=== PATIENT | female | born 1970 | race Caucasian/White ===

== ENCOUNTER → 2017-02-23 | Outpatient (CLI) | payer OTHER ==
[~2017-02-23] MED LIST: IOPAMIDOL (ISOVUE-300) 100 ML BTL ONE
== END ==
LOC: FIMAGING 15:45
PROVIDERS: ATTEND Internal Medicine Infectious Disease
DX: R10.30 Lower abdominal pain, unspecified (principal); R10.2 Pelvic and perineal pain; R11.0 Nausea; R63.4 Abnormal weight loss; R53.83 Other fatigue; Z80.41 Family history of malignant neoplasm of ovary
CPT/HCPCS: Q9967

== ENCOUNTER → 2017-04-24 | Outpatient (CLI) | payer OTHER | LOC: FCPNEURO 21:00 | PROVIDERS: ATTEND Student in an Organized Health Care Education/Training Program | DX: G47.33 Obstructive sleep apnea (adult) (pediatric) (principal) ==

== ENCOUNTER 2018-05-06 11:31 | Observation (INO) | payer OTHER ==
--- NOTE | 2018-05-06 12:42 | EDPHY ---
H & P Stated Complaint: SOB Time Seen by Provider: 05/06/18 12:27 HPI/ROS: CHIEF COMPLAINT: Dyspnea HISTORY OF PRESENT ILLNESS: The patient presents the ED for evaluation of several days of dyspnea. The patient does have a history of atrial fibrillation and is on Bystolic. She is not anticoagulated. She has no history of coronary artery disease. She does take a daily aspirin. The patient denies fever, cough or congestion. She reports increased dyspnea on exertion. The patient does admit to being under some stress secondary to the passing of her father. The patient denies any asymmetric leg swelling. She has had some mild pain in her left calf. REVIEW OF SYSTEMS: A comprehensive 10 point review of systems is otherwise negative aside from elements mentioned in the history of present illness. Source: Patient Exam Limitations: No limitations - Personal History Current Tetanus/Diphtheria Vaccine: Unsure Current Tetanus Diphtheria and Acellular Pertussis (TDAP): Unsure - Medical/Surgical History Hx Asthma: No Hx Chronic Respiratory Disease: No Hx Diabetes: Yes Hx Cardiac Disease: No Hx Renal Disease: No Hx Cirrhosis: No Hx Alcoholism: No Hx HIV/AIDS: No Hx Splenectomy or Spleen Trauma: No Other PMH: afib, DM2, HTN, polycystic ovarian, - Social History Smoking Status: Never smoked - Physical Exam Exam: General Appearance: Obese female, no acute distress Eyes: Pupils equal and round no pallor or injection ENT, Mouth: Mucous membranes moist Respiratory: There are no retractions, lungs are clear to auscultation Cardiovascular: Regular rate and rhythm Gastrointestinal: Abdomen is soft and nontender, no masses, bowel sounds normal Neurological: A&O, normal motor function, normal sensory exam, normal cranial nerves Skin: Warm and dry, no rashes Musculoskeletal: Neck is supple nontender Extremities: Mild left calf tenderness appreciated, no asymmetry noted on exam Psychiatric: Patient is oriented X 3, there is no agitation Constitutional: Initial Vital Signs Temperature (C) 37.3 C 05/06/18 11:40 Heart Rate 70 05/06/18 11:40 Respiratory Rate 16 05/06/18 11:40 Blood Pressure 148/90 H 05/06/18 11:40 O2 Sat (%) 95 05/06/18 11:40 O2 Delivery Mode Room Air Allergies/Adverse Reactions: No Known Allergies Allergy (Unverified 05/06/18 11:39) Home Medications: Medication Instructions [facility]ed [facility] 05/06/18 Lisinopril 05/06/18 Lorazepam 05/06/18 Metformin 1000 mg 05/06/18 Toujeo Solostar 05/06/18 Medical Decision Making - Diagnostics EKG Interpretation: EKG: Complete interpretation has been separately recorded in the [facility] archive. Summary impression: Sinus rhythm, rate 64 Imaging Results: Imaging Impressions Chest/Thorax CTA 05/06/18 14:17 Impression: Acute pulmonary thromboembolic disease within the lower lobes bilaterally and the right middle lobe. Results called to Dr. Weston Muniz at 2:55 PM at the time of the interpretation. ED Course/Re-evaluation: Patient presents to the ED for evaluation of acute dyspnea. The patient is found to have bilateral pulmonary embolism on CT pulmonary angiogram. Clinically the patient has no evidence of right heart failure. She has no evidence of an arrhythmia noted on her EKG. Differential Diagnosis: Differential diagnosis considered includes pulmonary embolism, pneumonia, acute coronary syndrome, pericarditis, myocarditis - Data Points Laboratory Results: Laboratory Results 05/06/18 12:51 05/06/18 12:51 05/06/18 05/06/18 05/06/18 13:38 12:51 12:51 WBC RBC Hgb Hct MCV MCH MCHC RDW Plt Count MPV Neut % (Auto) Lymph % (Auto) Davis % (Auto) Eos % (Auto) Baso % (Auto) Nucleat RBC Rel Count Absolute Neuts (auto) Absolute Lymphs (auto) Absolute Monos (auto) Absolute Eos (auto) Absolute Basos (auto) Absolute Nucleated RBC Immature Gran % Immature Gran # D-Dimer 2.04 ug/mLFEU H ug/mLFEU (0.00-0.50) Sodium 143 mEq/L mEq/L (135-145) Potassium 4.4 mEq/L mEq/L (3.5-5.2) Chloride 112 mEq/L H mEq/L (97-110) Carbon Dioxide 22 mEq/l mEq/l (22-31) Anion Gap 9 mEq/L mEq/L (6-14) BUN 13 mg/dL mg/dL (7-23) Creatinine 0.7 mg/dL mg/dL (0.6-1.0) Estimated GFR > 60 Glucose 102 mg/dL H mg/dL (70-100) Calcium 9.3 mg/dL mg/dL (8.5-10.4) POC Troponin I 0.02 ng/mL ng/mL (0.00-0.08) NT-Pro-B Natriuret Pep 91 pg/mL pg/mL (0-125) 05/06/18 12:51 WBC 8.03 10^3/uL 10^3/uL (3.80-9.50) RBC 4.39 10^6/uL 10^6/uL (4.18-5.33) Hgb 13.4 g/dL g/dL (12.6-16.3) Hct 40.4 % % (38.0-47.0) MCV 92.0 fL fL (81.5-99.8) MCH 30.5 pg pg (27.9-34.1) MCHC 33.2 g/dL g/dL (32.4-36.7) RDW 12.8 % % (11.5-15.2) Plt Count 322 10^3/uL 10^3/uL (150-400) MPV 9.4 fL fL (8.7-11.7) Neut % (Auto) 71.4 % % (39.3-74.2) Lymph % (Auto) 18.4 % % (15.0-45.0) Davis % (Auto) 8.6 % % (4.5-13.0) Eos % (Auto) 0.9 % % (0.6-7.6) Baso % (Auto) 0.5 % % (0.3-1.7) Nucleat RBC Rel Count 0.0 % % (0.0-0.2) Absolute Neuts (auto) 5.73 10^3/uL 10^3/uL (1.70-6.50) Absolute Lymphs (auto) 1.48 10^3/uL 10^3/uL (1.00-3.00) Absolute Monos (auto) 0.69 10^3/uL 10^3/uL (0.30-0.80) Absolute Eos (auto) 0.07 10^3/uL 10^3/uL (0.03-0.40) Absolute Basos (auto) 0.04 10^3/uL 10^3/uL (0.02-0.10) Absolute Nucleated RBC 0.00 10^3/uL 10^3/uL (0-0.01) Immature Gran % 0.2 % % (0.0-1.1) Immature Gran # 0.02 10^3/uL 10^3/uL (0.00-0.10) D-Dimer Sodium Potassium Chloride Carbon Dioxide Anion Gap BUN Creatinine Estimated GFR Glucose Calcium POC Troponin I NT-Pro-B Natriuret Pep Point of Care Test Results: Chemistry 05/06/18 13:38 POC Troponin I 0.02 ng/mL ng/mL (0.00-0.08) Departure - Departure Disposition: [facility] Inpatient Acute Clinical Impression: Pulmonary embolism Condition: Fair Referrals: KARSON SWANN [Primary Care Provider] - As per Instructions
[2018-05-06 13:09] LABS: PLATELET COUNT 322 10^3/uL (150-400)
--- NOTE | 2018-05-06 13:24 | CPEKG ---
Test Reason : OPEN Blood Pressure : / mmHG Vent. Rate : 064 BPM Atrial Rate : 064 BPM P-R Int : 141 ms QRS Dur : 105 ms QT Int : 412 ms P-R-T Axes : 021 021 012 degrees QTc Int : 425 ms Sinus rhythm Confirmed by Tho Neves ([id number]) on 05/06/2018 1:23:53 PM Referred By: Confirmed By:Tho Neves
[2018-05-06] MEDS ORDERED: IOPAMIDOL (ISOVUE 370) 100 ML BTL IV ONE (14:25)
[2018-05-06] MEDS ORDERED: RIVAROXABAN 15 MG TAB PO ONE (15:03)
--- NOTE | 2018-05-06 15:24 | PDGENHP ---
History and Physical History and Physical: Chief complaint: dyspnea on exertion History of present illness: The patient is a 47yo F who presented to the ED for feeling generally unwell and for dyspnea on minimal exertion, such as making her bed and walking up stairs for the last 24 hours. She has noticed recent palpitations which has occurred several times a day. She has felt very cold lately. She has been feeling fatigued for a few days. She has been more anxious/distressed this week because her father suddenly 1 week ago. She denies syncope. 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 ROS: +diarrhea the last few days, but she admits her eating pattern has changed and she has taken Imodium last night which helped. +abdominal pain that is intermittent for over 1 year, which she has brought up with her outpt physicians but no imaging has been done. 10 point review of systems was conducted and is negative except as above. Past medical history: ALTON non on CPAP, HTN, DM Type 2, Dyslipidemia, PAF no on AC, SVT, PCOS, Metabolic syndrome, obesity, anxiety. Past surgical history: hysteroscopy w/ D&C. Medications: Bystolic, lisinopril, aspirin, lorazepam, Toujeo, metformin. See med rec for doses. Allergies: NKA. Social history: Nonsmoker, does not drink alcohol, does not consume recreational drugs. , lives w/ . 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 Family history: No clotting disorders. Father - suddenly last week, unk cause, at 79yo. He had colon cancer at 78yo. Mother - unk cause following her [id number]-[id number]-vcb's at 62yo. PGM - from ovarian cancer at 84yo. HTN - brother, mother, father. PCP - Dr. Quirino Alfaro at [facility]. Cad Designer Drafter - Dr. Yue Lawrence. Physical exam: Vitals: Reviewed General: The patient is an obese female who is A&Ox3 and in no acute distress. HEENT: normocephalic, extraocular movements intact, conjunctivae clear, no lesions on face or pinnae. Nares and oral mucosa pink and moist. Neck: trachea midline, no visible masses, no external lesions. CV: +S1/S2, reg rate and rhythm. No murmurs/rubs/gallops. Resp: unlabored breathing, lungs clear to auscultation w/o rales, rhonchi, or wheezing. Abd: soft and nondistended, bowel sounds present. +tender periumbilical area. Musculoskeletal: Normal muscle tone/bulk. Neuro: cranial nerves II XII grossly intact. Intact gross motor and sensory function. Psych: Anxious mood/appropriate affect. Skin: No rash or ecchymoses or petechiae. : no suprapubic tenderness or CVA tenderness. Heme/lymph: No peripheral edema. Nontender calves/thighs bilaterally. Negative Dominique sign bilaterally. Labs: CBC WNL. D-dimer 2.04. Cl 112. Trop 0.02. Other Data: CTA chest - Acute pulmonary thromboembolic disease within the lower lobes bilaterally and the right middle lobe. EKG - SR, rt 65, Q3T3. Personally interpreted. Impression and plan: Acute bilateral PEs Probable DVT -likely 2/2 being sedentary, but may have alternate etiology Abd pain, intermittent Morbid obesity PCOS ALTON, not on CPAP HTN DM 2 HLD PAF, not on AC SVT Anxiety -Continue Xarelto, which was started in ED. -thrombophilia workup. -Check Echo to eval pulm HTN, right heart strain. -Check abd/pelv CT to eval for intrabdominal malignancy. -Recommended that pt consider outpt standard cancer screenings such as mammo and colo. -Monitor on tele, oximetry. -Check AM labs. -Explained to pt she may need O2 on DC. -Code status - Full. -VTE ppx - Xarelto. -Observation status.
[2018-05-06] MEDS ORDERED: HYDROmorphONE/DILAUDID 2 MG TAB PO PRN (16:15)
[2018-05-06] MEDS ORDERED: ONDANSETRON 4 MG/2 ML VIAL IVP PRN (16:15)
[2018-05-06] MEDS ORDERED: ACETAMINOPHEN 325 MG TAB PO PRN (16:15)
[2018-05-06] MEDS ORDERED: HYDROCODONE/APAP 5/325 TAB PO PRN (16:15)
[2018-05-06] MEDS ORDERED: ONDANSETRON DISINTEGRATING 4 MG TAB PO PRN (16:15)
[2018-05-06] MEDS ORDERED: D50W 25 GM/50 ML SYR IVP PRN (17:22)
[2018-05-06] MEDS ORDERED: IOPAMIDOL (ISOVUE-300) 100 ML BTL ONE (17:25)
[2018-05-06] MEDS: INSULIN GLARGINE HUM REC ANLOG U SQ SCH (21:00)
[2018-05-07 04:38] LABS: PLATELET COUNT 296 10^3/uL (150-400)
[2018-05-07] MEDS ORDERED: ASPIRIN 325 MG TAB PO SCH (09:00)
[2018-05-07] MEDS: LORazepam 1 MG TAB PO SCH (09:42)
[2018-05-07] MEDS: RIVAROXABAN 15 MG TAB PO SCH ×2 (09:42→19:12)
[2018-05-07] MEDS: LISINOPRIL 10 MG TAB PO SCH (09:42)
[2018-05-07] MEDS: NEBIVOLOL HCL 5 MG TAB PO SCH (09:42)
--- NOTE | 2018-05-07 12:01 | ASMTCMCOM ---
CM Note CM Note Notes: Case Management Note Met w/pt per MD order. Pt admitted for treatment of pulmonary embolism. Family and friend present in room. There are no case management d/c needs identified d/t pt age, employment status, family support and independence in ADL's prior to admission. There are no therapy evals ordered at this time. PCP is Dr. Alfaro in [place]. Case Management d/c poc: independent with follow up as directed. Case Management available if needs change. Date Signed: 05/07/2018 12:00 PM Electronically Signed By:Sandi Jamison RN
--- NOTE | 2018-05-07 12:31 | HOSPPROG ---
Hospitalist Progress Note Assessment/Plan: Acute bilateral PEs Probable DVT -likely 2/2 being sedentary, but may have alternate etiology Abd pain, intermittent Morbid obesity PCOS ALTON, not on CPAP HTN DM 2 HLD PAF, not on AC SVT Anxiety -Continue Xarelto, which was started in ED. -thrombophilia workup pending -Check Echo to eval pulm HTN, right heart strain. -Check abd/pelv CT to eval for intrabdominal malignancy. -Recommended that pt consider outpt standard cancer screenings such as mammo and colo. -Monitor on tele, oximetry. -Code status - Full. -VTE ppx - Xarelto. -Dispo pending above w/u Subjective: Patient reports some SOB this morning Objective: Vital Signs Temp Pulse Resp BP Pulse Ox 36.7 C 56 L 16 117/67 96 05/07/18 11:46 05/07/18 11:46 05/07/18 11:46 05/07/18 11:46 05/07/18 11:46 Laboratory Results 05/07/18 04:00 05/07/18 04:00 05/06/18 05/07/18 05/08/18 05:59 05:59 05:59 Intake Total 300 Balance 300 - Physical Exam Constitutional: no apparent distress Eyes: PERRL Ears, Nose, Mouth, Throat: moist mucous membranes Cardiovascular: regular rate and rhythym Respiratory: no respiratory distress Gastrointestinal: soft, non-tender abdomen Skin: warm Neurologic: AAOx3 Psychiatric: interacting appropriately ICD10 Worksheet Patient Problems: Problems Problem Status Onset Pulmonary embolism Acute
[2018-05-07] MEDS ORDERED: IOPAMIDOL (ISOVUE-300) 100 ML BTL ONE (13:12)
--- NOTE | 2018-05-07 13:25 | ECHO ---
[email or web address] [address] [address] Main: [phone] Fax: Transthoracic Echocardiogram Name: TAL ERVIN MR#: [id number] Study Date: 05/07/2018 Study Time: 09:02 AM Date of : 1970 Age: 47 year(s) Height: 167.6 cm (66 in.) Weight: 137.89 kg (304 lb.) BSA: 2.39 m2 Gender: Female Examination: Echo Indication: bilat PE-eval for pulm htn and rt heart strain Image Quality: Technically Difficult Contrast: Requested by: Elsa Tretn BP: 121 mmHg/76 mmHg Heart Rate: Rhythm: Indication: bilat PE-eval for pulm htn and rt heart strain Procedure Staff [employer] Sales Representative: Kim Huggins [facility] Reading Physician: Matthew Quiroz MD Requesting Provider: Conclusions: Normal size left ventricle. Borderline concentric LV hypertrophy. Normal global systolic LV function. EF is 56 %. Unable to rule out wall motion abnormalities due to poor endocardial definition. Normal size right ventricle. Normal RV function. There is an echodensity in the left atrium in 4 chamber views. Suspect artifact. However, can not exclude thrombus. Consider TREVIN to further evaluate.. The mitral valve is normal in appearance. There is no mitral valve regurgitation. Aortic valve is not well visualized. There is no aortic valve regurgitation. No aortic valve stenosis is present. Pulmonary artery pressure is not obtained due to inadequate TR jet. There are no old studies for comparison. Measurements: Chambers Valvular Assessment AV/MV Valvular Assessment TV/PV Normal Normal Normal Name Value Range Name Value Range Name Value Range Ao Courtney (MM): 3.1 cm (2.2 cm-3.7 AV Vmax: 1.52 m/s (1 m/s-1.7 PV Vmax: 0.83 m/s (0.6 m/s-0.9 cm) m/s) m/s) IVSd (2D): 0.8 cm (0.6 cm-1.1 AV maxP mmHg ( - ) PV PGmax: 3 mmHg ( - ) cm) LVOT Vmax: 0.88 m/s (0.7 m/s-1.1 LVDd (2D): 4.5 cm (3.9 cm-5.3 m/s) cm) ROLO (Vmax): 1.8 cm2 ( - ) LVDs (2D): 3.2 cm (2.1 cm-4 MV E Vmax: 1.06 m/s ( - ) cm) MV A Vmax: 0.73 m/s ( - ) LVPWd (2D): 1.1 cm ( - ) MV E/A: 1.45 ( - ) Patient: TAL ERVIN Study Date: 05/07/2018 Page 1 of 2 09:02 AM LVOTd 2.0 cm 2.0 cm mm LVEF (2D): 56 (>=54 %) RVDd(2D): 3.0 cm (1.9 cm-3.8 cmmm) Continued Measurements: Chambers Valvular Assessment AV/MV Name Value Name Value LADs: 4.1 cm MV DecTime: 187 m/s LADs Lon.1 cm MV E' Septal: 0.10 m/s LA Area: 23.7 cm2 MV E/E' Septal: 10.20 LA Volume: 66 ml MV E/E' Lateral: 7.60 LA Volume Index: 27.6 ml/m2 TAPSE: 3.1 cm RA Area: 15.7 cm2 Additional Vessels Name Value Ao Ascendin.7 cm Findings: Left Ventricle: Normal size left ventricle. Borderline concentric LV hypertrophy. Normal global systolic LV function. EF is 56 %. Unable to rule out wall motion abnormalities due to poor endocardial definition. Normal diastolic LV function. Right Ventricle: Normal size right ventricle. Normal RV function. Left Atrium: The left atrium is normal in size. There is an echodensity in the left atrium in 4 chamber views. Suspect artifact. However, can not exclude thrombus. Consider TREVIN to further evaluate.. Right Atrium: The right atrium is normal in size. Mitral Valve: The mitral valve is normal in appearance. There is no mitral valve regurgitation. No mitral stenosis is present. Aortic Valve: Aortic valve is not well visualized. There is no aortic valve regurgitation. No aortic valve stenosis is present. Tricuspid Valve: The tricuspid valve is normal in appearance and function. Trivial tricuspid valve regurgitation. Pulmonary artery pressure is not obtained due to inadequate TR jet. Pulmonic Valve: Pulmonary valve not well visualized. There is no pulmonic regurgitation seen. Aorta: Normal size aortic root measuring 3.1 cm. Normal size ascending aorta measuring 2.7 cm. IVC: The IVC is not visualized. Pericardium: No pericardial effusion. (No Signature Object) Patient: TAL ERVIN Study Date: 05/07/2018 Page 2 of 2 09:02 AM [id number]
[2018-05-07] MEDS: INSULIN GLARGINE HUM REC ANLOG U SQ SCH (21:56)
[2018-05-08] MEDS ORDERED: PROPOFOL/EMULSION 500 MG/50 ML BOTTLE IV ONE (08:11)
[2018-05-08] MEDS ORDERED: LIDOCAINE 2% 100 MG/5 ML SYR ONE (08:11)
[2018-05-08] MEDS ORDERED: ALBUTEROL 3 ML DEYVIAL IH PRN (08:28)
[2018-05-08] MEDS ORDERED: NALOXONE HCL 0.4 MG/ML INJ IVP PRN (08:28)
--- NOTE | 2018-05-08 08:28 | PDANEPAE ---
ANE Past Medical History - Pulmonary History Hx Oxygen in Use at Home: No Hx Sleep Apnea: Yes - Endocrine History Hx Diabetes: Yes - Chronic Pain History Chronic Pain: No ANE Review of Systems Review of Systems: ANE Patient History - Allergies Allergies/Adverse Reactions: No Known Allergies Allergy (Unverified 05/06/18 11:39) - Home Medications Home Medications: Aspirin [Aspirin 325 mg (*)] 325 mg PO DAILY 05/06/18 [Last Taken Unknown] Insulin Glargine,Hum.rec.anlog [Toujuditho Solostar] 10 unit SQ HS 05/06/18 [Last Taken Unknown] LORazepam [Ativan (*)] 1 mg PO DAILY 05/06/18 [Last Taken 05/06/18] Lisinopril [Zestril 10 mg (*)] 10 mg PO DAILY 05/06/18 [Last Taken 05/06/18] Metformin HCl [Metformin 1000 mg] 1,000 mg PO BIDMEAL 05/06/18 [Last Taken 05/06 10:00] Nebivolol HCl [Bystolic] 10 mg PO DAILY 05/06/18 [Last Taken 05/06/18] - Smoking Hx Smoking Status: Never smoked ANE Labs/Vital Signs - Labs Result Diagrams: 05/07/18 04:00 05/07/18 04:00 - Vital Signs Blood Pressure: 127/75 Heart Rate: 63 Respiratory Rate: 15 O2 Sat (%): 95 Height: 167.64 cm Weight: 138.3 kg ANE Physical Exam - Airway Neck exam: decreased ROM Mallampati Score: Class 3 Mouth exam: normal dental/mouth exam - Pulmonary Pulmonary: reduced air movement - Cardiovascular Cardiovascular: regular rate and rhythym - ASA Status ASA Status: III ANE Anesthesia Plan Total IV Anesthesia: Yes
--- NOTE | 2018-05-08 08:43 | PDHPUP ---
History & Physical Update H&P update statement: This history and physical update is based on an assessment of the patient which was completed after admission or registration (within 24 hours), but prior to the surgery/procedure. H&P update: H&P reviewed & patient examined, no change in patient's condition since H&P completed
--- NOTE | 2018-05-08 09:13 | POSTANESTH ---
Post Anesthetic Evaluation Cardiovascular Status: Similar to Pre-Op Cond Respiratory Status: Similar to Pre-op Cond. Level of Consciousness/Mental Status: Mildly Sleepy, Arousable Pain Control: Adequate, Prn Tx Ordered Nausea/Vomiting Control: Adequate, Prn Tx Ordered Complications Possibly Related to Anesthesia: None Noted
[2018-05-08] MEDS: LISINOPRIL 10 MG TAB PO SCH (09:45)
[2018-05-08] MEDS: NEBIVOLOL HCL 5 MG TAB PO SCH (09:46)
[2018-05-08] MEDS: LORazepam 1 MG TAB PO SCH (09:46)
[2018-05-08] MEDS: RIVAROXABAN 15 MG TAB PO SCH (09:47)
[2018-05-08 11:07] VITALS: BP 122/72
--- NOTE | 2018-05-08 11:35 | PDMN ---
Medical Necessity Medical necessity: Change to inpt as of 05/08/18. Pt meets inpt criteria per MD order and [facility] [place] M-290, Pulmonary Embolism. 47 y/o admitted w/acute bilateral PE's and probable DVT, abnormal ECHO, will have TREVIN today. PMH includes morbid obesity, DM type 2, anxiety, SVT, PCOS, and metabolic syndrome. Upgraded to inpt for persistent dyspnea and need for further eval/management of above.
--- NOTE | 2018-05-08 12:53 | ASDISCHSUM ---
Discharge Information Plan Status:Home with No Needs Medically Cleared to Leave:05/07/2018 Discharge Date:05/07/2018 CM D/C Disposition:Home, Routine, Self-Care ADT D/C Disposition: Projected Discharge Date:05/07/2018 Transportation at D/C:Self Discharge Delay Reason: Follow-Up Date:05/07/2018 Discharge Slot: Final Diagnosis: Placement Information Patient Contact Information Contact Name:MUKESH Relationship:Sabrina Address:[address] [place] [address] City:[place] Alternate Phone: State/Zip Code:[place] [address] Email: Financial Information Financial Class:Netadmin [facility] Primary Plan Number:[id number] Secondary Plan Desc: Secondary Plan Number: Assessment Information LACE LACE Length of stay for Answers: Less than 1 day current admission Acuity / Level of Answers: Yes Care: Did the patient have an inpatient admission? Comorbidities - select Answers: Diabetes (uncontrolled or all that apply controlled) Other Notes: ALTON on CPAP, HTN, dyslipidemia , S VT, COS, metabolic syndrome # of Emergency department Answers: 1-2 visits in the last 6 months Social determinants Answers: Mental health diagnosis (anxiety, depression, pers onality disorders, etc.) Score: 9 Date Signed: 05/08/2018 12:52 PM Electronically Signed By:Sandi Jamison RN [facility] CM Progress Note CM Note CM Note Notes: Case Management Note Met w/pt per MD order. Pt admitted for treatment of pulmonary embolism. Family and friend present in room. There are no case management d/c needs identified d/t pt age, employment status, family support and independence in ADL's prior to admission. There are no therapy evals ordered at this time. PCP is Dr. Alfaro in [place]. Case Management d/c poc: independent with follow up as directed. Case Management available if needs change. Date Signed: 05/07/2018 12:00 PM Electronically Signed By:Sandi Jamison RN Case Management Discharge Plan Note Case Management Discharge Discharge Order Complete? Answers: Yes Patient to Obtain Answers: via Family Medications Transportation Arranged Answers: Family/Friends Discharge Comments Notes: 05/08/2018 Case Management Note Pt to discharge independent with follow up as directed. Date Signed: 05/08/2018 12:53 PM Electronically Signed By:Sandi Jamison RN Intervention Information
--- NOTE | 2018-05-08 14:19 | PDDCSUM ---
Discharge Summary Discharge Summary: Date of Admission: Date fo Discharge: Consults: Cardiology Procedures: TTE, TREVIN Followup: PCP Hospital Course Problem List: Acute bilateral PEs Abd pain, intermittent Morbid obesity PCOS ALTON, not on CPAP HTN DM 2 HLD PAF, not on AC SVT Anxiety -Continue Xarelto 15 mg BID for first 21 days then 20 mg qd -thrombophilia workup pending, f/u with PCP for results and possible referral to Hematology if w/u is positive -TTE during admission showed echodensity in L atrium, artifact was suspected but unable to exclude thrombus -TREVIN was then performed to further evaluate TTE which did not show any evidence of L atrial thrombus -Abd/pelv CT performed to r/o intrabdominal malignancy, negative -Recommended that pt consider outpt standard cancer screenings such as mammo and colo. Time spent on discharge was >35 minutes with >50% of time spent on patient education and counseling.
--- NOTE | 2018-05-08 16:25 | ECHO ---
[email or web address] [address] [address] Main: [phone] Fax: Transesophageal Echocardiography Name: TAL ERVIN MR#: [id number] Study Date: 05/08/2018 Study Time: 08:57 AM Date of : 1970 Age: 47 year(s) Height: ( ) Weight: ( ) BSA: Gender: Female Examination: TREVIN Indication: Rule out thrombus Image Quality: Adequate Contrast: Requested by: Elsa Trent Heart Rate: Rhythm: BP: / Procedure Staff Sole Cementer: Alicia Vazquez [facility] Reading Physician: Mustapha Anderson MD Requesting Provider: TREVIN Exam Details Conclusions: Normal size left ventricle. Normal global systolic LV function. No regional wall motion abnormality. Normal size right ventricle. The left atrium is normal in size. The left atrial appendage is unilobular. No thrombus in left appendage. The right atrium is normal in size. Trivial mitral valve regurgitation. Mild tricuspid regurgitation is present. There are no significant valvular abnormalities.Normal appearing valves. Measurements: Chambers Valvular Assessment AV/MV Valvular Assessment TV/PV Normal Normal Normal Name Value Range Name Value Range Name Value Range Additional Measurements: Findings: Left Ventricle: Normal size left ventricle. Normal global systolic LV function. No regional wall motion abnormality. Right Ventricle: Patient: TAL ERVIN Study Date: 05/08/2018 Page 1 of 2 08:57 AM Normal size right ventricle. Normal RV function. Left Atrium: The left atrium is normal in size. Left Atrial Appendage: The left atrial appendage is unilobular. No thrombus in left appendage. Right Atrium: The right atrium is normal in size. Mitral Valve: The mitral valve is normal in appearance and function. Trivial mitral valve regurgitation. No mitral stenosis is present. Aortic Valve: The aortic valve is tri-leaflet. There is no significant aortic valve regurgitation. No aortic valve stenosis is present. Tricuspid Valve: The tricuspid valve is normal in appearance and function. Mild tricuspid regurgitation is present. Pulmonic Valve: The pulmonic valve is normal in appearance and function. Pericardium: No pericardial effusion. l1n (No Signature Object) Patient: TAL ERVIN Study Date: 05/08/2018 Page 2 of 2 08:57 AM [id number]
== END 2018-05-08 14:55 | disposition home or self-care (01) ==
LOC: F2W 15:45 → INTOOBSV 05-08 10:20 → OBSVTOIN 05-08 10:20
PROVIDERS: ADMIT Internal Medicine; ATTEND Internal Medicine
PROC: B245ZZ4 Ultrasonography of Left Heart, Transesophageal (ICD-10-PCS; principal; 2018-05-06)
DX: I26.99 Other pulmonary embolism without acute cor pulmonale (principal); E66.01 Morbid (severe) obesity due to excess calories; D68.9 Coagulation defect, unspecified; R10.9 Unspecified abdominal pain; G47.33 Obstructive sleep apnea (adult) (pediatric); I10 Essential (primary) hypertension; E11.9 Type 2 diabetes mellitus without complications; E78.5 Hyperlipidemia, unspecified; I48.0 Paroxysmal atrial fibrillation; F41.9 Anxiety disorder, unspecified; E28.2 Polycystic ovarian syndrome; Z79.82 Long term (current) use of aspirin; Z68.42 Body mass index [BMI] 45.0-49.9, adult
CPT/HCPCS: 71275; 74177; 93005; 93306; 93312; 99285; G0378; 81479-90; 83891-91; 83896-91; 84484-ER; 85300-90; 85670-90; 86147-90; J2001; J2704; Q9967

== ENCOUNTER 2018-05-20 17:44 | Emergency (ER) | payer OTHER ==
--- NOTE | 2018-05-20 18:42 | EDPHY ---
H & P Time Seen by Provider: 05/20/18 18:10 HPI/ROS: CHIEF COMPLAINT: The bilateral chest pain. HISTORY OF PRESENT ILLNESS: The patient is a 47-year-old female who was diagnosed with bilateral pulmonary embolus on 05/06/2018. She is currently taking Xarelto. She has not missed any doses. She presents today because this afternoon she developed bilateral chest pain under her breast. Extends down to her bilateral lower chest wall. The triage note states that she has flank pain but she denies flank pain to me. She has had no shortness of breath. No cough or fever. No abdominal pain. No nausea or vomiting. REVIEW OF SYSTEMS: 10 systems were reveiwed and are negative with the exception of the elements mentioned in the history of present illness. Past Medical/Surgical History: Includes pulmonary embolus, obstructive sleep apnea, hypertension, diabetes type 2, dyslipidemia, SVT, PCOS, metabolic syndrome, obesity, anxiety Smoking Status: Never smoked Physical Exam: 36.6, 132/86, 61, 18, 100% on room air GENERAL: Mildly anxious., in no acute distress, alert. HEENT: Eyes normal to inspection, normal pharynx, no signs of dehydration. NECK: Normal, supple. RESPIRATORY: Clear to auscultation bilaterally, no rales, rhonchi or wheezing. Normal CVS: Regular rate and rhythm, no rubs, murmurs, or gallops. ABDOMEN: Soft, nontender, nondistended, no organomegaly. Normal BACK: Normal to inspection, no CVA tenderness. SKIN: Normal color, no rash, warm, dry. No pallor. EXTREMITIES: No pedal edema, no calf tenderness, no Homans sign or cords, no joint swelling. NEURO/PSYCH: Alert and oriented, mildly anxious, normal motor sensory exam. No obvious cranial nerve deficit. Constitutional: Initial Vital Signs Temperature (C) 36.6 C 05/20/18 17:48 Heart Rate 61 05/20/18 17:48 Respiratory Rate 18 05/20/18 17:48 Blood Pressure 132/86 H 05/20/18 17:48 O2 Sat (%) 100 05/20/18 17:48 O2 Delivery Mode Room Air Allergies/Adverse Reactions: No Known Allergies Allergy (Unverified 05/06/18 11:39) Home Medications: Medication Instructions Recorded Aspirin [Aspirin 325 mg (*)] 325 mg PO DAILY 05/06/18 Insulin Glargine,Hum.rec.anlog 10 unit SQ HS 05/06/18 [Maxx Landry] LORazepam [Ativan (*)] 1 mg PO DAILY 05/06/18 Lisinopril [Zestril 10 mg (*)] 10 mg PO DAILY 05/06/18 Metformin HCl [Metformin 1000 mg] 1,000 mg PO BIDMEAL 05/06/18 Nebivolol HCl [Bystolic] 10 mg PO DAILY 05/06/18 Rivaroxaban [Xarelto 15mg (*)] 15 mg PO BIDMEAL #60 tab 05/08/18 Medical Decision Making - Diagnostics Imaging Results: Imaging Impressions Chest/Thorax CTA 05/20/18 18:50 Impression: Near complete interval resolution of bilateral pulmonary thromboemboli. Minimal residual thrombus in right lower lobe branches. Results called to Dr. Laure Montoya at 8:30 PM at the time of the interpretation. ED Course/Re-evaluation: The in the emergency department I discussed possible etiologies with the patient. I answered all her questions. I discussed that she could develop pain from her current he has. I also discussed the low likelihood of failure on Xarelto. After an extended discussion and answered all her questions patient would like a repeat CT angiogram. I discussed the risks and benefits of this. She was competent and had capacity to make this decision. EKG shows normal sinus rhythm, normal rate, normal axis, normal intervals. There are no ST or T-wave abnormalities. EKG is normal as interpreted by me. The white count is mildly elevated at 9.9. Chemistry panel is unremarkable. Urine is negative. CT angio chest: Please refer the dictated report by Dr. Becerril. The patient has decreased clot load. The patient appears to be improving. I discussed the results with the patient. I answered all her questions. She was given warnings prior to leaving. She will return with worsening symptoms. Differential Diagnosis: My differential includes but is not limited to pleurisy, pulmonary embolus, ACS , acute MA, dissection, aneurysm, pericarditis, myocarditis. The patient has no flank pain or CVA tenderness on my exam. I doubt kidney stone. - Data Points Laboratory Results: Laboratory Results 05/20/18 18:48 05/20/18 18:48 05/20/18 05/20/18 05/20/18 18:54 18:53 18:48 WBC RBC Hgb POC Hgb 13.9 gm/dL gm/dL (12.6-16.3) Hct POC Hct 41 % % (38-47) MCV MCH MCHC RDW Plt Count MPV Neut % (Auto) Lymph % (Auto) [place] % (Auto) Eos % (Auto) Baso % (Auto) Nucleat RBC Rel Count Absolute Neuts (auto) Absolute Lymphs (auto) Absolute Monos (auto) Absolute Eos (auto) Absolute Basos (auto) Absolute Nucleated RBC Immature Gran % Immature Gran # POC Sodium 142 mEq/L mEq/L (135-145) Sodium 137 mEq/L mEq/L (135-145) POC Potassium 4.2 mEq/L mEq/L (3.3-5.0) Potassium 4.5 mEq/L mEq/L (3.5-5.2) POC Chloride 105 mEq/L mEq/L (97-110) Chloride 107 mEq/L mEq/L (97-110) Carbon Dioxide 24 mEq/l mEq/l (22-31) Anion Gap 6 mEq/L mEq/L (6-14) POC BUN 13 mg/dL mg/dL (7-23) BUN 15 mg/dL mg/dL (7-23) Creatinine 0.6 mg/dL mg/dL (0.6-1.0) POC Creatinine 0.6 mg/dL mg/dL (0.6-1.0) Estimated GFR > 60 Glucose 119 mg/dL H mg/dL (70-100) POC Glucose 121 mg/dL H mg/dL (70-100) Calcium 9.4 mg/dL mg/dL (8.5-10.4) POC Troponin I 0.01 ng/mL ng/mL (0.00-0.08) Beta HCG, Qual Urine Color Urine Appearance Urine pH Ur Specific [place] Urine Protein Urine Ketones Urine Blood Urine Nitrate Urine Bilirubin Urine Urobilinogen Ur Leukocyte Esterase Urine Glucose 05/20/18 05/20/18 05/20/18 18:48 18:18 18:10 WBC 9.90 10^3/uL H 10^3/uL (3.80-9.50) RBC 4.37 10^6/uL 10^6/uL (4.18-5.33) Hgb 13.0 g/dL g/dL (12.6-16.3) POC Hgb Hct 40.2 % % (38.0-47.0) POC Hct MCV 92.0 fL fL (81.5-99.8) MCH 29.7 pg pg (27.9-34.1) MCHC 32.3 g/dL L g/dL (32.4-36.7) RDW 12.7 % % (11.5-15.2) Plt Count 360 10^3/uL 10^3/uL (150-400) MPV 9.7 fL fL (8.7-11.7) Neut % (Auto) 62.3 % % (39.3-74.2) Lymph % (Auto) 28.5 % % (15.0-45.0) [place] % (Auto) 7.1 % % (4.5-13.0) Eos % (Auto) 1.1 % % (0.6-7.6) Baso % (Auto) 0.7 % % (0.3-1.7) Nucleat RBC Rel Count 0.0 % % (0.0-0.2) Absolute Neuts (auto) 6.17 10^3/uL 10^3/uL (1.70-6.50) Absolute Lymphs (auto) 2.82 10^3/uL 10^3/uL (1.00-3.00) Absolute Monos (auto) 0.70 10^3/uL 10^3/uL (0.30-0.80) Absolute Eos (auto) 0.11 10^3/uL 10^3/uL (0.03-0.40) Absolute Basos (auto) 0.07 10^3/uL 10^3/uL (0.02-0.10) Absolute Nucleated RBC 0.00 10^3/uL 10^3/uL (0-0.01) Immature Gran % 0.3 % % (0.0-1.1) Immature Gran # 0.03 10^3/uL 10^3/uL (0.00-0.10) POC Sodium Sodium POC Potassium Potassium POC Chloride Chloride Carbon Dioxide Anion Gap POC BUN BUN Creatinine POC Creatinine Estimated GFR Glucose POC Glucose Calcium POC Troponin I Beta HCG, Qual NEGATIVE Urine Color YELLOW Urine Appearance CLEAR Urine pH 5.0 (5.0-7.5) Ur Specific [place] 1.026 (1.002-1.030) Urine Protein NEGATIVE (NEGATIVE) Urine Ketones TRACE H (NEGATIVE) Urine Blood NEGATIVE (NEGATIVE) Urine Nitrate NEGATIVE (NEGATIVE) Urine Bilirubin NEGATIVE (NEGATIVE) Urine Urobilinogen NEGATIVE EU EU (0.2-1.0) Ur Leukocyte Esterase NEGATIVE (NEGATIVE) Urine Glucose NEGATIVE (NEGATIVE) Medications Given: Discontinued Medications Ketorolac Tromethamine (Toradol) 15 mg IVP EDNOW ONE Stop: 05/20/18 19:01 Last Admin: 05/20/18 19:22 Dose: 15 mg Point of Care Test Results: Chemistry 05/20/18 05/20/18 18:54 18:53 POC Sodium 142 mEq/L mEq/L (135-145) POC Potassium 4.2 mEq/L mEq/L (3.3-5.0) POC Chloride 105 mEq/L mEq/L (97-110) POC BUN 13 mg/dL mg/dL (7-23) POC Creatinine 0.6 mg/dL mg/dL (0.6-1.0) POC Glucose 121 mg/dL H mg/dL (70-100) POC Troponin I 0.01 ng/mL ng/mL (0.00-0.08) ISTAT H&H 05/20/18 18:54 POC Hgb 13.9 gm/dL gm/dL (12.6-16.3) POC Hct 41 % % (38-47) Departure - Departure Disposition: Home, Routine, Self-Care Clinical Impression: Pleurisy Chest pain Qualifiers: Chest pain type: unspecified Qualified Code(s): R07.9 - Chest pain, unspecified Condition: Good Instructions: Chest Pain (ED), Pleurisy (ED) Additional Instructions: Your CT angiogram showed improving findings. Follow up with your primary care physician. Return with worsening symptoms. Referrals: KARSON SWANN [Primary Care Provider] - 3-4 days, if not improved
[2018-05-20] MEDS ORDERED: KETOROLAC 15 MG/1 ML SDV ONE (18:47)
[2018-05-20] MEDS ORDERED: KETOROLAC 15 MG/1 ML SDV IVP ONE (19:00)
[2018-05-20 19:02] LABS: PLATELET COUNT 360 10^3/uL (150-400)
[2018-05-20] MEDS ORDERED: IOPAMIDOL (ISOVUE 370) 100 ML BTL IV ONE (19:04)
[2018-05-20 21:58] VITALS: BP 131/69
--- NOTE | 2018-05-22 14:33 | CPEKG ---
Test Reason : OPEN Blood Pressure : / mmHG Vent. Rate : 058 BPM Atrial Rate : 058 BPM P-R Int : 138 ms QRS Dur : 105 ms QT Int : 442 ms P-R-T Axes : 013 013 004 degrees QTc Int : 435 ms Sinus rhythm Confirmed by Laure Montoya ([id number]) on 05/22/2018 2:33:37 PM Referred By: Confirmed By:Laure Montoya
== END 2018-05-20 21:58 | disposition home or self-care (01) ==
DX: R09.1 Pleurisy (principal); I26.99 Other pulmonary embolism without acute cor pulmonale; Z79.01 Long term (current) use of anticoagulants
CPT/HCPCS: 82435-PO; 82565-PO; 82947-PO; 84132-PO; 84295-PO; 84484-ER; 84520-PO; 85014-ER; 96374; J1885; Q9967

== ENCOUNTER 2018-06-15 02:10 | Observation (INO) | payer OTHER ==
[2018-06-15] MEDS ORDERED: HYDROmorphONE/DILAUDID 2 MG/ML INJ IVP ONE (02:35)
[2018-06-15] MEDS ORDERED: NS 1,000 ML IV ONE (02:35)
[2018-06-15] MEDS ORDERED: FAMOTIDINE 20 MG/NACL 50 ML IV ONE (02:35)
[2018-06-15] MEDS ORDERED: HYDROmorphONE/DILAUDID 1 MG/ML INJ ONE (02:38)
--- NOTE | 2018-06-15 02:40 | EDPHY ---
H & P Stated Complaint: abd pain Time Seen by Provider: 06/15/18 02:21 HPI/ROS: HPI The patient presents with epigastric abdominal pain which has been present for the last approximately 2 weeks intermittently. The pain normally occurs about 30-40 minutes after eating a meal. It them subsides. She saw her primary care doctor yesterday and was given a prescription for omeprazole. Basic labs were drawn on the patient was noted to have elevated transaminases. Tonight, she went home and ate a slice of pizza at 7:30 p.m.. She had pain 30 min afterwards though is able to go to sleep. She awoke at about midnight with severe epigastric pain which she describes as aching which radiates toward her back and is moderate in severity. It is not associated with any nausea or vomiting. She has no prior history of abdominal operations. The patient was diagnosed with bilateral pulmonary embolism on May 06 of last year and was started on Xarelto though was transitioned to warfarin. She is taking this medication currently. She denies any dark or bloody stools. She has not had any fevers.. REVIEW OF SYSTEMS 10 systems were reviewed and negative with the exception of the elements mentioned in the history of present illness. PMHx: Recent diagnosis of bilateral pulmonary emboli, now on warfarin, PCOS, obesity, hypertension, atrial fibrillation, type 2 diabetes Soc Hx: Housed with her PHYSICAL General Appearance: Alert, no distress Eyes: Pupils equal and round no pallor or injection ENT, Mouth: Mucous membranes moist Respiratory: There are no retractions, lungs are clear to auscultation Cardiovascular: Regular rate and rhythm Gastrointestinal: Abdomen is soft and tender in the epigastrium and right upper quadrants, no masses, bowel sounds normal Neurological: A&O, moves all extremities Skin: Warm and dry, no rashes Musculoskeletal: Neck is supple non tender Extremities: symmetrical, full range of motion Psychiatric: Patient is oriented X 3, there is no agitation Source: Patient Exam Limitations: No limitations - Personal History LMP (Females 10-55): 1-7 Days Ago Current Tetanus Diphtheria and Acellular Pertussis (TDAP): Unsure - Medical/Surgical History Hx Asthma: No Hx Chronic Respiratory Disease: No Hx Diabetes: Yes Hx Cardiac Disease: Yes Hx Renal Disease: No Hx Cirrhosis: No Hx Alcoholism: No Hx HIV/AIDS: No Hx Splenectomy or Spleen Trauma: No Other PMH: afib, DM2, HTN, polycystic ovarian, PE apr 2018 - Social History Smoking Status: Never smoked Constitutional: Initial Vital Signs Temperature (C) 36.8 C 06/15/18 02:14 Heart Rate 60 06/15/18 02:14 Respiratory Rate 20 06/15/18 02:14 Blood Pressure 144/84 H 06/15/18 02:14 O2 Sat (%) 98 06/15/18 02:14 O2 Delivery Mode Room Air Allergies/Adverse Reactions: No Known Allergies Allergy (Unverified 06/15/18 02:14) Home Medications: Medication Instructions Recorded Aspirin [Aspirin 325 mg (*)] 325 mg PO DAILY 05/06/18 Insulin Glargine,Hum.rec.anlog 10 unit SQ HS 05/06/18 [Toujeo Solostar] LORazepam [Ativan (*)] 1 mg PO DAILY 05/06/18 Lisinopril [Zestril 10 mg (*)] 10 mg PO DAILY 05/06/18 Metformin HCl [Metformin 1000 mg] 1,000 mg PO BIDMEAL 05/06/18 Nebivolol HCl [Bystolic] 10 mg PO DAILY 05/06/18 Rivaroxaban [Xarelto 15mg (*)] 15 mg PO BIDMEAL #60 tab 05/08/18 Medical Decision Making - Diagnostics Imaging Results: Ultrasound right upper quadrant demonstrates cholelithiasis with gallbladder wall thickening suggesting acute cholecystitis, common bile duct measures 8.8 mm , this was interpreted by direct Radiology. Imaging: Discussed imaging studies w/ freight caller Radiologist, I viewed and interpreted images myself Differential Diagnosis: 47-year-old female with multiple medical problems including recent bilateral pulmonary embolism on warfarin, type 2 diabetes, hypertension, obesity, PCOS, atrial fibrillation who presents from home with several weeks of epigastric pain which is postprandial, now with severe pain since midnight tonight. Labs checked yesterday by primary care demonstrate transaminitis with elevated CRP. Differential diagnosis includes cholecystitis, choledocholithiasis, symptomatic cholelithiasis, gastritis. In the emergency department, patient was given IV fluids and medication for her symptoms. Labs were checked and demonstrated progressive transaminitis without leukocytosis. Right upper quadrant ultrasound was performed which demonstrated cholecystitis. Because of this I consulted with Dr. Hughes, the on-call general surgeon. He will evaluate the patient. I have ordered antibiotics. She will be admitted to the hospital. I have discussed the diagnosis and treatment with the patient. She is somewhat concerned because of all of her recent health issues and her underlying obesity and diabetes. - Data Points Laboratory Results: Laboratory Results 06/15/18 02:50 06/15/18 02:50 06/15/18 06/15/18 06/15/18 02:50 02:50 02:50 WBC 8.14 10^3/uL 10^3/uL (3.80-9.50) RBC 4.03 10^6/uL L 10^6/uL (4.18-5.33) Hgb 11.7 g/dL L g/dL (12.6-16.3) Hct 35.9 % L % (38.0-47.0) MCV 89.1 fL fL (81.5-99.8) MCH 29.0 pg pg (27.9-34.1) MCHC 32.6 g/dL g/dL (32.4-36.7) RDW 13.3 % % (11.5-15.2) Plt Count 400 10^3/uL 10^3/uL (150-400) MPV 9.7 fL fL (8.7-11.7) Neut % (Auto) 67.6 % % (39.3-74.2) Lymph % (Auto) 21.1 % % (15.0-45.0) [place] % (Auto) 9.0 % % (4.5-13.0) Eos % (Auto) 1.4 % % (0.6-7.6) Baso % (Auto) 0.7 % % (0.3-1.7) Nucleat RBC Rel Count 0.0 % % (0.0-0.2) Absolute Neuts (auto) 5.50 10^3/uL 10^3/uL (1.70-6.50) Absolute Lymphs (auto) 1.72 10^3/uL 10^3/uL (1.00-3.00) Absolute Monos (auto) 0.73 10^3/uL 10^3/uL (0.30-0.80) Absolute Eos (auto) 0.11 10^3/uL 10^3/uL (0.03-0.40) Absolute Basos (auto) 0.06 10^3/uL 10^3/uL (0.02-0.10) Absolute Nucleated RBC 0.00 10^3/uL 10^3/uL (0-0.01) Immature Gran % 0.2 % % (0.0-1.1) Immature Gran # 0.02 10^3/uL 10^3/uL (0.00-0.10) PT 31.8 SEC H SEC (12.0-15.0) INR 3.10 H (0.83-1.16) APTT 39.9 SEC H SEC (23.0-38.0) Sodium 141 mEq/L mEq/L (135-145) Potassium 3.8 mEq/L mEq/L (3.5-5.2) Chloride 111 mEq/L H mEq/L (97-110) Carbon Dioxide 23 mEq/l mEq/l (22-31) Anion Gap 7 mEq/L mEq/L (6-14) BUN 14 mg/dL mg/dL (7-23) Creatinine 0.6 mg/dL mg/dL (0.6-1.0) Estimated GFR > 60 Glucose 204 mg/dL H mg/dL (70-100) Calcium 8.7 mg/dL mg/dL (8.5-10.4) Total Bilirubin 1.3 mg/dL mg/dL (0.1-1.4) Conjugated Bilirubin 1.1 mg/dL H mg/dL (0.0-0.5) Unconjugated Bilirubin 0.2 mg/dL mg/dL (0.0-1.1) AST 691 IU/L H IU/L (14-46) ALT 1042 IU/L H IU/L (9-52) Alkaline Phosphatase 314 IU/L H IU/L (38-126) Total Protein 6.4 g/dL g/dL (6.3-8.2) Albumin 3.5 g/dL g/dL (3.5-5.0) Lipase 229 IU/L IU/L (23-300) Medications Given: Sodium Chloride (Ns) 1,000 mls @ 200 mls/hr IV CONT ADRIAN Stop: 12/12/18 04:29 Last Admin: 06/15/18 04:29 Dose: 1,000 mls Discontinued Medications Hydromorphone HCl (Dilaudid) 0.5 mg IVP EDNOW ONE Stop: 06/15/18 02:36 Last Admin: 06/15/18 02:45 Dose: 0.5 mg Sodium Chloride (Ns) 1,000 mls @ 0 mls/hr IV EDNOW ONE; Wide Open PRN Reason: Protocol Stop: 06/15/18 02:36 Last Admin: 06/15/18 02:44 Dose: 1,000 mls Famotidine/Sodium Chloride (Pepcid 20 Mg (Premix)) 50 mls @ 200 mls/hr IV EDNOW ONE Stop: 06/15/18 02:49 Last Admin: 06/15/18 02:44 Dose: 50 mls Ceftriaxone Sodium/Dextrose (Rocephin 1 Gm (Premix)) 50 mls @ 100 mls/hr IV EDNOW ONE PRN Reason: Protocol Stop: 06/15/18 04:45 Last Admin: 06/15/18 04:27 Dose: 50 mls Departure - Departure Disposition: [facility] In[facility] Acute Clinical Impression: Acute cholecystitis, Transaminitis Pulmonary embolism Qualifiers: Pulmonary embolism type: unspecified Chronicity: chronic Acute cor pulmonale presence: without acute cor pulmonale Qualified Code(s): I27.82 - Chronic pulmonary embolism Condition: Fair Referrals: KARSON SWANN [Primary Care Provider] - As per Instructions
[2018-06-15 02:59] LABS: PLATELET COUNT 400 10^3/uL (150-400)
[2018-06-15 03:07] LABS: INR 3.1 (0.83-1.16); PROTIME(PATIENT) 31.8 SEC (12.0-15.0)
[2018-06-15] MEDS ORDERED: NS 1,000 ML IV SCH (04:30)
[2018-06-15] MEDS ORDERED: LORazepam 2 MG/ML INJ IVP PRN (08:28)
[2018-06-15] MEDS ORDERED: HYDROmorphONE/DILAUDID 2 MG/ML INJ IVP PRN (08:28)
--- NOTE | 2018-06-15 10:21 | GHP ---
[f rep st] PREOP HISTORY AND PHYSICAL DATE OF ADMISSION: 06/15/2018 REASON FOR EVALUATION: Cholecystitis. HISTORY OF PRESENT ILLNESS: This is a 47-year-old female with significant history for obesity, diabe aurora, polycystic ovarian disease, atrial fibrillation and pulmonary embolism diagnosed in [place], who presents to the emergency room with a 2-week history of intermittent generalized abdomin al pain. Symptoms had previously been self-limited. She was started on omeprazole by her PCP yester day. Last evening after dinner she developed severe worsening of symptoms, bringing her to the emerg ency room earlier this morning. She reports radiation of pain toward her back. She denies nausea or vomiting. She denies an anteced ent history of right upper quadrant pain or epigastric pain with any particular type of meal. No his tory of jaundice. Notable recent dark urine. No acholic stools. PAST MEDICAL HISTORY: Diabetes, polycystic ovarian disease, atrial fibrillation, pulmonary embolism. PAST SURGICAL HISTORY: None. MEDICATIONS: Coumadin, Bystolic, lisinopril, lorazepam, Toujeo, metformin. ALLERGIES: No known drug allergies. SOCIAL HISTORY: No alcohol. No tobacco. She is to [place]. 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 REVIEW OF SYSTEMS: Notable for appropriate recent situational depression related to her father's sara th. PHYSICAL EXAM: VITAL SIGNS: Temperature 36.7, blood pressure 134/75, pulse 60, respirations 18. GE NERAL: Patient is alert, appropriate, anxious. HEENT: Anicteric. NECK: No cervical or supraclavi cular lymphadenopathy. HEART: Regular. LUNGS: Clear. ABDOMEN: Soft. Mild diffuse tenderness wi thout rebound or guarding. No Rico sign. EXTREMITIES: Without edema. NEUROLOGIC: Alert and keysha ropriate. SKIN: Without rashes. LABORATORY: White count 8, hemoglobin 12, platelets of 400. INR of 3.1. Electrolytes within refere nce range. Glucose 204, alkaline phosphatase 314, AST 691, ALT 1042, total bilirubin 1.3 with a conj ugated fraction of 1.1. Lipase 229. The patient notes previous recent liver enzymes were normal per PCP examination. Right upper quadrant ultrasound: 11 mm common bile duct, with markedly thickened gallbladder measuri ng up to 6 mm, consistent with cholecystitis. IMPRESSION: 1. Cholecystitis with choledocholithiasis. 2. History of pulmonary embolism. 3. History of atrial fibrillation. 4. History of diabetes. 5. Polycystic ovarian disease. PLAN: Care plan was discussed with Dr. Polanco for GI. Will plan to proceed with a joint ERCP wi th laparoscopic cholecystectomy this evening. Will provide FFP for Coumadin reversal. Surgical risk s and benefits were extensively discussed with the patient and at the bedside including, but not limited to, bleeding, infection, bowel injury, retained stone, post ERCP pancreatitis, as well as open surgical conversion. All questions were entertained. They desired to proceed. /[id number]/MODL
--- NOTE | 2018-06-15 11:09 | GCON ---
[f rep st] CONSULTATION GI CONSULTATION DATE OF CONSULTATION: 06/15/2018 REFERRING PHYSICIAN: Reece Hughes MD REASON FOR CONSULTATION: Acute symptomatic cholelithiasis with abnormal bile duct and liver enzymes; query choledocholithiasis. HISTORY OF PRESENT ILLNESS: The patient is a 47-year-old female who is on Coumadin therapy for newly diagnosed pulmonary emboli in April of last year, who also has obesity, hypertension, history of transient atrial fibrillation, type 2 diabetes mellitus, and polycystic ovarian syndrome. She was admitted through the emergency room early this morning with a 2-week history of intermittent, progressively more severe epigastric abdominal pain with radiation to the back. She denied any nausea, vomiting, acholic stools, or dark urine. Right upper quadrant ultrasound on admission revealed cholelithiasis and a common bile duct of 9 mm without intrahepatic biliary dilatation. The liver was 15 cm in full height with heterogeneous echogenicity consistent with hepatic steatosis. The pancreas was obscured, albeit the patient did have normal pancreas on CT scan in April of last year. I was asked to see the patient by Dr. Hughes for consideration of pre-laparoscopic cholecystectomy ERCP. MEDICATIONS: Prior to admission: Aspirin 325 mg p.o. daily, insulin 2 units subcu q.h.s., lorazepam 1 mg p.o. daily, lisinopril 10 mg p.o. daily, metformin 1000 mg p.o. b.i.d. with meals, Bystolic 10 mg p.o. daily, and Coumadin daily ( patient recently stopped Xarelto). ALLERGIES: No known drug allergies. PAST MEDICAL HISTORY: Recent diagnosis of bilateral pulmonary emboli on May 06, 2018, on warfarin therapy (recently transitioned from Xarelto to warfarin) type 2 diabetes mellitus on insulin, obesity, essential hypertension, atrial fibrillation, polycystic ovarian syndrome. FAMILY HISTORY: Negative for GI malignancies or peptic ulcer disease or gallbladder disease. SOCIAL HISTORY: She is . She and her live in the [place] area. She does not smoke tobacco or drink significant quantities of alcohol. REVIEW OF SYSTEMS: Other than as noted in HPI a comprehensive review of systemswas negative on my examination. PHYSICAL EXAMINATION: VITAL SIGNS: Temperature is 36.7 Celsius, pulse 60 regular, blood pressure 134/76, respiratory rate 18, O2 saturation 99% on room air. GENERAL: Well-developed, obese female lying in bed in no apparent distress. INTEGUMENT: Clear. HEENT: Head atraumatic, normocephalic. Pupils equal, round, reactive to light. EOMs intact. Sclerae nonicteric. Nares patent. Mucous membranes moist. Dentition good. NECK: Full. Trachea midline. LYMPHATIC: No cervical or axillary adenopathy palpated PULMONARY: Lungs clear to percussion, auscultation. CARDIOVASCULAR: Regular rhythm, rate. Normal S1, S2 without murmur. Peripheral pulses strong bilaterally. No pedal edema. GASTROINTESTINAL: Abdomen obese. Positive bowel sounds. No liver, spleen tip palpable. Tenderness in the epigastrium to deep palpation without palpable mass or rebound. EXTREMITIES: Without deformity. NEURO: Patient was alert, oriented x3. No focal neurologic deficits. LABORATORY/IMAGING: White count 8.14, hemoglobin 11.7, hematocrit 35.7, platelets 400,000. Pro time 31.8, INR 3.12, PTT 39.9. Electrolytes normal. Creatinine 0.6, BUN 14. Total bilirubin 1.3, conjugated 1.1, unconjugated 0.2, AST 691, ALT 1042, ALP 314, lipase 229. Glucose 199. Right upper quadrant ultrasound as noted in HPI. IMPRESSION: 1. Symptomatic cholelithiasis with 9 mm diameter distal common bile duct and elevated liver enzymes, rule out choledocholithiasis. 2. Chronic anticoagulation for PE's. 3. Type II Diabetes Mellitus. 4. Obesity. 5. Essential hypertension. RECOMMENDATIONS: Would obtain MRCP today for further delineation of anatomy and confirmation of choledocholithiasis. If MRCP shows common duct stone or is equivocal, we will then proceed with preoperative ERCP, papillotomy and clearance of common bile duct later today. /[id number]/MODL MTDD
[2018-06-15] MEDS: NEBIVOLOL HCL 5 MG TAB PO SCH (13:33)
[2018-06-15] MEDS: LISINOPRIL 10 MG TAB PO SCH (13:33)
[2018-06-15] MEDS ORDERED: GADOBUTROL 10 ML VIAL IVP ONE (13:54)
--- NOTE | 2018-06-15 13:54 | ASMTCMCOM ---
CM Note CM Note Notes: Patient admitted for Cholelithiasis, scheduled MRCP today with possible need for ERCP. After review of chart, do not anticipate patient needing anything upon discharge. Patient lives in [place] with . CM available should any needs arise. Plan: Anticipate independent. Date Signed: 06/15/2018 01:53 PM Electronically Signed By:Carla Adams RN
[2018-06-15] MEDS ORDERED: BUPIVACAINE/EPI 0.5% 30 ML SDV ONE (14:23)
--- NOTE | 2018-06-15 15:16 | PDANEPAE ---
ANE History of Present Illness symptomatic cholecystitis and here for lap suellen and poss ERCP ANE Past Medical History - Pulmonary History Hx Oxygen in Use at Home: No Hx Sleep Apnea: Yes Sleep Apnea Screening Result - Last Documented: Positive - Endocrine History Hx Diabetes: Yes - Chronic Pain History Chronic Pain: No ANE Review of Systems Review of Systems: ANE Patient History - Allergies Allergies/Adverse Reactions: No Known Allergies Allergy (Verified 06/15/18 07:38) - Home Medications Home Medications: Insulin Glargine,Hum.rec.anlog [Toujeo Solostar] 10 unit SQ HS 05/06/18 [Last Taken 06/14/18] LORazepam [Ativan (*)] 1 mg PO DAILY06 05/06/18 [Last Taken 06/14/18] Lisinopril [Zestril 10 mg (*)] 10 mg PO DAILY06 05/06/18 [Last Taken 06/14/18] Metformin HCl [Metformin 1000 mg] 1,000 mg PO BIDMEAL 05/06/18 [Last Taken 06/14 18:00] Nebivolol HCl [Bystolic] 10 mg PO DAILY06 05/06/18 [Last Taken 06/14/18] Warfarin Sodium [Coumadin 5MG (*)] 5 mg PO DAILY06 06/15/18 [Last Taken 06/14/18 ] - NPO status NPO Since - Liquids (Date): 06/15/18 NPO Since - Liquids (Time): 13:30 NPO Since - Solids (Date): 06/14/18 NPO Since - Solids (Time): 19:30 - Smoking Hx Smoking Status: Never smoked ANE Labs/Vital Signs - Labs Result Diagrams: 06/15/18 02:50 06/15/18 02:50 - Vital Signs Blood Pressure: 145/78 Heart Rate: 51 Respiratory Rate: 18 O2 Sat (%): 97 Height: 167.64 cm Weight: 139.3 kg
[2018-06-15 15:35] LABS: INR 1.89 (0.83-1.16); PROTIME(PATIENT) 21.8 SEC (12.0-15.0)
[2018-06-15] MEDS ORDERED: LR 1,000 ML IV ONE (16:11)
[2018-06-15] MEDS ORDERED: IOTHALAMATE MEG (CONRAY) 50 ML VIAL IV ONE (16:18)
[2018-06-15] MEDS ORDERED: MIDAZOLAM 2 MG/2 ML VIAL IVP ONE (16:36)
--- NOTE | 2018-06-15 16:38 | PDANEPAE ---
ANE History of Present Illness cholelithiasis s/f ERCP and lap suellen ANE Past Medical History - Cardiovascular History Hx Hypertension: Yes Hx Arrhythmias: Yes - Pulmonary History Hx Oxygen in Use at Home: No Hx Sleep Apnea: No Sleep Apnea Screening Result - Last Documented: Positive Pulmonary History Comment: pulmonary embolism - Endocrine History Hx Diabetes: Yes - Chronic Pain History Chronic Pain: No ANE Review of Systems Review of Systems: - Exercise capacity Exercise capacity: <4 METS ANE Patient History - Allergies Allergies/Adverse Reactions: No Known Allergies Allergy (Verified 06/15/18 07:38) - Home Medications Home medications: home medication list seen and reviewed Home Medications: Insulin Glargine,Hum.rec.anlog [Toujeo Solostar] 10 unit SQ HS 05/06/18 [Last Taken 06/14/18] LORazepam [Ativan (*)] 1 mg PO DAILY06 05/06/18 [Last Taken 06/14/18] Lisinopril [Zestril 10 mg (*)] 10 mg PO DAILY06 05/06/18 [Last Taken 06/14/18] Metformin HCl [Metformin 1000 mg] 1,000 mg PO BIDMEAL 05/06/18 [Last Taken 06/14 18:00] Nebivolol HCl [Bystolic] 10 mg PO DAILY06 05/06/18 [Last Taken 06/14/18] Warfarin Sodium [Coumadin 5MG (*)] 5 mg PO DAILY06 06/15/18 [Last Taken 06/14/18 ] - NPO status NPO Status: no food or drink >8 hours NPO Since - Liquids (Date): 06/14/18 NPO Since - Liquids (Time): 19:00 NPO Since - Solids (Date): 06/14/18 NPO Since - Solids (Time): 19:00 - Anes Hx Anes Hx: no prior problems - Smoking Hx Smoking Status: Never smoked - Alcohol Use Alcohol Use: Occasionally - Family Anes Hx Family Anes Hx: none ANE Labs/Vital Signs - Labs Result Diagrams: 06/15/18 02:50 06/15/18 02:50 - Vital Signs Blood Pressure: 145/78 Heart Rate: 93 Respiratory Rate: 16 O2 Sat (%): 99 Height: 167.64 cm Weight: 139.3 kg ANE Physical Exam - Airway Mallampati Score: Class 2 Mouth exam: normal dental/mouth exam - Pulmonary Pulmonary: no respiratory distress - Cardiovascular Cardiovascular: regular rate and rhythym - ASA Status ASA Status: III ANE Anesthesia Plan Anesthesia Plan: general endotracheal anesthesia
[2018-06-15] MEDS ORDERED: MIDAZOLAM 2 MG/2 ML VIAL ONE (16:40)
--- NOTE | 2018-06-15 16:41 | CPEKG ---
Test Reason : OPEN Blood Pressure : / mmHG Vent. Rate : 054 BPM Atrial Rate : 054 BPM P-R Int : 142 ms QRS Dur : 111 ms QT Int : 463 ms P-R-T Axes : 005 018 011 degrees QTc Int : 439 ms Sinus rhythm Confirmed by Simon Nicholson ([id number]) on 06/15/2018 4:40:55 PM Referred By: Reece Hughes Confirmed By:Simon Nicholson
[2018-06-15] MEDS ORDERED: PROPOFOL/EMULSION 500 MG/50 ML BOTTLE IV ONE (16:47)
[2018-06-15] MEDS ORDERED: fentaNYL 100 MCG/2 ML INJ ONE ×2 (16:49→19:35)
[2018-06-15] MEDS ORDERED: ROCURONIUM 100 MG/10 ML VIAL ONE (16:51)
[2018-06-15] MEDS ORDERED: ePHEDrine SULFATE 25 MG/5 ML SYR ONE (17:07)
[2018-06-15] MEDS ORDERED: INDOMETHACIN 50 MG SUPP PR ONE (17:11)
[2018-06-15] MEDS ORDERED: DEXAMETHASONE 4 MG/ML VIAL ONE ×2 (17:21)
--- NOTE | 2018-06-15 17:43 | GIREPORT ---
[facility] - Endoscopy Department Patient Name: Alexandra Bright Procedure Date: 06/15/2018 4:40 PM Patient Type: Inpatient Attending MD/ ER Physician: Claus Polanco MD Procedure: ERCP Indications: Bile duct stone(s), Elevated liver enzymes Providers: Claus Polanco MD Medicines: General Anesthesia, Indomethacin 100 mg W[place] Complications: No immediate complications. Description of Procedure: After obtaining informed consent, the scope was passed under direct vis ion. Throughout the procedure, the patient's blood pressure, pulse, and oxyg en saturations were monitored continuously. The Duodenalscope was introduc ed through the mouth, and advanced to the duodenum and used to inject cont rast into the bile duct. The ERCP was accomplished without difficulty. The patient tolerated the procedure well. The patient tolerated the procedu re well. I PERSONALLY INTERPRETED THE FLUOROSCOPY WITHOUT ASSISTANCE. Findings: The scope was passed through a normal UGI tract. The major papilla was normal. The minor papilla was not found. A 12 mm biliary sphincterotomy was made with a braided traction (standard) sphincterotome with guidewire u sing ERBE electrocautery. The sphincterotomy oozed blood briefly and then stopped. The lower third of the main bile duct contained one stone, whi ch was 8 mm in diameter. The biliary tree was swept with a 12 mm balloon starting at the upper third of the main bile duct, middle third of the main bile duct and lower third of the main duct. One stone was removed. No s tones remained. Estimated Blood Loss: Estimated blood loss was minimal. Post Op Diagnosis: - Choledocholithiasis was found. Complete removal was accomplished by biliary sphincterotomy and balloon extraction. - A biliary sphincterotomy was performed. - The biliary tree was swept. Recommendation: - Dr. Hughes to proceed with Lap Nia today. Attending Participation: I personally performed the entire procedure. Claus Polanco MD Claus Polanco MD 06/15/2018 5:43:20 PM This report has been signed electronicallyClaus Polanco MD Number of Addenda: 0 Note Initiated On: 06/15/2018 4:40 PM [email or web address]}
[2018-06-15] MEDS ORDERED: NEOSTIGMINE METHYLSULFATE 5 MG/5 ML SYR ONE (18:21)
[2018-06-15] MEDS ORDERED: GLYCOPYRROLATE 0.2 MG/1 ML VIAL ONE ×2 (18:22)
[2018-06-15] MEDS ORDERED: ONDANSETRON 4 MG/2 ML VIAL ONE (18:22)
[2018-06-15] MEDS ORDERED: KETOROLAC 30 MG/1 ML SDV ONE (18:24)
--- NOTE | 2018-06-15 18:41 | POSTOPPROG ---
Post Op Note Date of Operation: 06/15/18 Surgeon: Reece Hughes Communication Center Coordinator: Jhoana Kerr PA-C Anesthesiologist: Salty Coon Anesthesia: GET(General Endotracheal) Pre-op Diagnosis: Acute cholecystitis and choledocholithiasis Post-op Diagnosis: same Procedure: laparoscopic cholecystectomy with intraop ERCP Findings: CBD stone retrieval on ERCP, enlarged cystic duct with stones, edematous GB Inf/Abcess present in the surg proc area at time of surgery?: No EBL: Minimal Complications: no immediate Specimen(s): gallbladder
[2018-06-15] MEDS ORDERED: DEXAMETHASONE 4 MG/ML VIAL IVP PRN (18:48)
[2018-06-15] MEDS ORDERED: oxyCODONE IR 5 MG TAB PO PRN (18:48)
[2018-06-15] MEDS ORDERED: PHENYLEPHRINE HCL 100 MCG/ML SYR IVP PRN (18:48)
[2018-06-15] MEDS ORDERED: ONDANSETRON 4 MG/2 ML VIAL IVP PRN (18:48)
[2018-06-15] MEDS ORDERED: MEPERIDINE 25 MG/0.5 ML AMP IVP PRN (18:48)
[2018-06-15] MEDS ORDERED: ALBUTEROL 3 ML DEYVIAL IH PRN (18:48)
[2018-06-15] MEDS ORDERED: NALOXONE HCL 0.4 MG/ML INJ IVP PRN (18:48)
[2018-06-15] MEDS ORDERED: HYDROCODONE/APAP 5/325 TAB PO PRN (18:48)
[2018-06-15] MEDS ORDERED: ACETAMINOPHEN 500 MG TAB PO PRN (18:48)
[2018-06-15] MEDS ORDERED: LABETALOL HCL 5 MG/ML 20 ML MDV IVP PRN (18:48)
[2018-06-15] MEDS ORDERED: fentaNYL 100 MCG/2 ML INJ IVP PRN (18:48)
[2018-06-15] MEDS ORDERED: METOCLOPRAMIDE 10 MG/2 ML VIAL IVP PRN (18:48)
[2018-06-15] MEDS ORDERED: LR 500 ML IV PRN (18:48)
[2018-06-15] MEDS ORDERED: PROMETHAZINE HCL 25 MG/ML INJ IVP PRN (18:48)
--- NOTE | 2018-06-15 18:52 | POSTANESTH ---
Post Anesthetic Evaluation Cardiovascular Status: Normal, Stable Respiratory Status: Normal, Stable, Tx Decrease in SpO2 (minimal by NC-routine post op) Level of Consciousness/Mental Status: Can Participate in Eval, Mildly Sleepy, Arousable Pain Control: Adequate, Prn Tx Ordered Nausea/Vomiting Control: Adequate, Prn Tx Ordered Complications Possibly Related to Anesthesia: None Noted
--- NOTE | 2018-06-15 18:56 | GOP ---
[f rep st] OPERATIVE REPORT DATE OF OPERATION: 06/15/2018 SURGEON: Reece Hughes MD ASSESSOR: Jhoana Kerr PA-C. ANESTHESIA: General. ANESTHESIOLOGIST: Salty Coon MD. PREOPERATIVE DIAGNOSIS: Acute cholecystitis with choledocholithiasis. POSTOPERATIVE DIAGNOSIS: Acute cholecystitis with choledocholithiasis. PROCEDURE PERFORMED: Laparoscopic cholecystectomy with intraoperative endoscopic retrograde cholangi opancreatography. FINDINGS: INDICATIONS: A 47-year-old female with acute cholecystitis with choledocholithiasis. She is undergo ing a laparoscopic cholecystectomy at this time. Risks and benefits were explained of bleeding, infe ction, and bile duct injury, as well as open conversion. She is aware of the risks of postoperative ERCP and pancreatitis, as well. All questions are answered. She desires to proceed. A surgical ass istant is standard, necessary, and customary for the safe performance of this procedure. DESCRIPTION OF PROCEDURE: General anesthesia was induced. The abdomen was pre-injected with 0.5% Ma rcaine with epinephrine. A vertical infraumbilical cutdown was created. A 10 mm trocar was placed u nder direct visualization. Three additional 5 mm upper abdominal ports were inserted. The gallbladd er was markedly thickened and foreshortened at the level of the nolan. The duct and artery were circ umferentially encompassed confirming the critical view of safety. The gallbladder was markedly infla med and difficult to manipulate. The artery was divided with the ultrasonic dissector. The gallblad nahum was taken from top down allowing for better exposure of the foreshortened enlarged cystic duct wi th multiple impacted stones. The stones were all retrograde and milked back into the gallbladder. T he PDS Endoloop was passed over the gallbladder down, securing the proximal cystic duct, as well as t he distal duct at the gallbladder side. The gallbladder was divided with the ultrasonic dissector an d the specimen brought through the umbilical port site intact using an EndoCatch pouch. Satisfactory hemostasis was assured. Trocars were removed under direct visualization. The infraumbilical midlin e fascia was closed with a running Vicryl suture. The wounds were closed with Monocryl followed by D ermabond. The patient was taken to the recovery room uneventfully. EMPLOYMENT SPECIALIST/PROGRAM MANAGER: Clasu Polanco MD. /[id number]/MODL
[2018-06-16] MEDS: HYDROCODONE/APAP 5/325 TAB PO PRN ×3 (03:25→16:11)
[2018-06-16] MEDS ORDERED: WARFARIN SODIUM 5 MG TAB PO SCH (06:00)
[2018-06-16] MEDS ORDERED: LORazepam 1 MG TAB PO SCH (06:00)
[2018-06-16] MEDS: NEBIVOLOL HCL 5 MG TAB PO SCH (06:33)
[2018-06-16] MEDS: LISINOPRIL 10 MG TAB PO SCH (06:36)
[2018-06-16] MEDS ORDERED: metFORMIN HCL 500 MG TAB PO SCH (08:19)
[2018-06-16 08:27] VITALS: BP 140/69
--- NOTE | 2018-06-16 11:47 | SOAPPROG ---
SOAP Progress Note Assessment/Plan: Assessment: 1. CBD stone; S/P ERCP, Papillotomy, and balloon sweep to 8 mm CBD stone from distal duct. Doing well without clinical signs of pancreatitis. 2. S/P lap suellen for acute cholecystitis and cholelithiasis. Plan: 1. Post op care per Dr Hughes. I will sign off today. Please call me for further GI issues. Claus Polanco MD [phone] 06/16/18 11:44 Subjective: ; CBD stone. Interval HPI: Patient feeling fine today other then some epigastric and RUQ tenderness and surgical incision sites. No nausea or back pain. Tolerated diet this am. Objective: Vital Signs Temp Pulse Resp BP Pulse Ox 36.6 C 51 L 17 140/69 H 93 06/16/18 08:23 06/16/18 08:23 06/16/18 08:23 06/16/18 08:23 06/16/18 08:23 06/15/18 06/16/18 06/17/18 05:59 05:59 05:59 Intake Total 1200 200 Output Total 100 Balance 1100 200 PT 21.8 SEC (12.0-15.0) H 06/15/18 09:32 INR 1.89 (0.83-1.16) H 06/15/18 09:32 Physical Exam - Physical Exam General Appearance: alert, no apparent distress Respiratory: lungs clear, normal breath sounds Cardiac/Chest: regular rate, rhythm Abdomen: normal bowel sounds, soft (mildly tender in RUQ.) Skin: warm/dry Neuro/Psych: alert, normal mood/affect, oriented x 3 ICD10 Worksheet Patient Problems: Problems Problem Status Onset Acute cholecystitis Acute Pulmonary embolism Acute Transaminitis Acute
--- NOTE | 2018-06-16 12:12 | GDS ---
[f rep st] DISCHARGE SUMMARY This is a 47-year-old female who presented to the emergency room on June 15, 2018, with a complaint of right upper quadrant pain. She had a few similar episodes in the past, but none at this severity. She has a significant medical history of obesity, diabetes, polycystic ovarian disease, atrial fibrillation, and pulmonary embolism. Upon abdominal ultrasound and MRI, she was found to have cholelithiasis with common bile duct dilation. Labs revealed transaminitis. She was given fresh frozen plasma prior to planned procedures, as she is on Coumadin. She underwent an ERCP with Dr. Polanco on June 15, where 1 stone was retrieved from the common bile duct. She then proceeded to have laparoscopic cholecystectomy. Patient tolerated the procedures well and had no postoperative complaints. She has had an otherwise unremarkable hospital course. Her Coumadin was restarted the following morning , as well as her other home medications and diabetic diet. Her pain was well managed with oral analgesics. She is to follow up in the outpatient setting in 1-2 weeks. She may shower. She was advised of no lifting greater than 30 pounds for the next 2 weeks. She is to resume all home medications. A prescription was provided for tramadol. All questions were addressed prior to discharge. HOME MEDICATIONS: Coumadin, lisinopril, Ativan, Toujeo, Bystolic, metformin. /[id number]/MODL MTDD
[2018-06-16] MEDS ORDERED: Insulin Glargine,Hum.Rec.Anlog [Toujeo Solostar] SQ SCH (21:00)
[2018-06-17] MEDS ORDERED: metFORMIN HCL 500 MG TAB PO SCH (18:00)
== END 2018-06-16 16:57 | disposition home or self-care (01) ==
LOC: INTOOBSV 04:14 → F2W 05:29
PROVIDERS: ADMIT Surgery; ATTEND Surgery
PROC: 0FT44ZZ Resection of Gallbladder, Percutaneous Endoscopic Approach (ICD-10-PCS; principal; 2018-06-15 14:45)
PROC: 30233N1 Transfusion of Nonautologous Red Blood Cells into Peripheral Vein, Percutaneous Approach (ICD-10-PCS; 2018-06-15 14:45)
PROC: 0FC98ZZ Extirpation of Matter from Common Bile Duct, Via Natural or Artificial Opening Endoscopic (ICD-10-PCS; 2018-06-15 14:45)
PROC: BF101ZZ Fluoroscopy of Bile Ducts using Low Osmolar Contrast (ICD-10-PCS; 2018-06-15 14:45)
DX: K80.42 Calculus of bile duct with acute cholecystitis without obstruction (principal); R74.0 Nonspecific elevation of levels of transaminase and lactic acid dehydrogenase [LDH]; Z86.711 Personal history of pulmonary embolism; Z79.01 Long term (current) use of anticoagulants; E11.9 Type 2 diabetes mellitus without complications; Z79.4 Long term (current) use of insulin; I48.91 Unspecified atrial fibrillation; E66.9 Obesity, unspecified; I10 Essential (primary) hypertension; E86.0 Dehydration
CPT/HCPCS: 36430; 43264; 47563; 74183; 76705; 93005; 96361; 96365; 96367; 96375; 96376; 99285; G0378; P9016; P9017; A9585; J0696; J1100; J1170; J1885; J2060; J2250; J2405; J2704; J2710; J3010; Q9961